=== PATIENT | male | born 1985 | race Caucasian/White ===

== ENCOUNTER 2022-10-27 08:56 | Emergency (ER) | payer MEDICAID, OTHER ==
[~2022-10-27] VITALS: Ht 182.9 cm; Wt 129.0 kg
[2022-10-27 09:04] VITALS: BP 158/83
[2022-10-27] MEDS ORDERED: TETanus/Pertussis (Acell)/Diphther VAC/PF (Tdap-Adult) 0.5ml syringe IMVAC ONE (10:25)
[2022-10-27] MEDS ORDERED: SULF1TAB49 PO (11:20)
[2022-10-27] MEDS ORDERED: LEVO750T68 PO (11:21)
[2022-10-27] MEDS ORDERED: HYDR-3965 PO (11:21)
== END 2022-10-27 11:36 | disposition home or self-care (01) ==
LOC: ER 08:57
DX: S91.331A Puncture wound without foreign body, right foot, initial encounter (principal); L03.115 Cellulitis of right lower limb; W22.09XA Striking against other stationary object, initial encounter; Y93.89 Activity, other specified; Y92.89 Other specified places as the place of occurrence of the external cause; Y99.8 Other external cause status
CPT/HCPCS: 73630; 90471; 90715; 99283; L4360